=== PATIENT | female | born 1990 | race Two or more races ===

== ENCOUNTER 2025-04-29 12:22 | Emergency (ER) | payer MEDICAID, SELFPAY ==
[2025-04-29 12:23] VITALS: BMI 46.4
[2025-04-29 12:36] VITALS: BP 129/85; PULSE 69; RESP 18; TEMP 36.7; O2SAT 98; BMI 46.4
--- NOTE | 2025-04-29 12:48 | XR_ITS ---
Examination: CT abdomen and pelvis without contrast. Coronal 3-D reconstructions. Sagittal 2-D reconstructions. Date and time of exam:April 29, 2025 1541 hours INDICATIONS: Abdominal pain and vomiting beginning 2 days ago CTDI: vol (mGy): 12.3 DLP: (mGycm): 671 Technique: Axial images of the abdomen have been obtained, 3 mm slice thickness Intravenous contrast material has not been administered. Low dose protocols were performed. One or more of the following dose reduction techniques were used; automated exposure control, adjustment of the mA and/or KV according to patient size, use of iterative reconstruction technique. Findings: Right middle lobe No visualized liver and splenic lesions Absent gallbladder No pancreatic or adrenal mass No renal or ureteral calculi, no hydronephrosis No bowel obstruction 10 mm fat-containing umbilical hernia Normal appendix No diverticulitis Partially retroverted uterus No pelvic mass Contracted urinary bladder The osseous structures are intact IMPRESSION: No renal or ureteral calculi, no hydronephrosis No bowel obstruction Normal appendix No diverticulitis
--- NOTE | 2025-04-29 12:49 | EDNOTE_ITS ---
<Statement entered by Ashley Louis MD - 04/30/25 06:23> As co-signing physician, I was present and available for consult prn. I concur with the plan and care as documented by the midlevel provider. ED Abdominal Pain RME/HPI General Chief Complaint: Abdominal Pain Stated complaint: ABD PAIN SINCE YESTERDAY WITH VOMITING Time seen by provider: 04/29/25 13:03 Arrival date/time: 04/29/25 12:22 34-year-old female with no known medical history presents to the emergency room with a chief complaint of epigastric 10 out of 10 diffuse abdominal pain and vomiting x 2 days Source: patient Mode of arrival: ambulatory Limitations: no limitations Related Data Home Medications ?Medication ?Instructions ?Recorded ?Confirmed docusate sodium 100 mg capsule 100 mg PO QDAY 12/03/22 12/03/22 (Colace) [id number] 1 mg 1 tab PO BID 12/03/22 12/03/22 tablet Previous Rx's ?Medication ?Instructions ?Recorded nitrofurantoin 100 mg PO Q12H 5 days #10 ca ps 04/29/25 monohydrate/macrocrystals 100 mg capsule (Macrobid) Allergies Allergy/AdvReac Type Severity Reaction Status Date / Time codeine Allergy Severe Rash Verified 04/29/25 12:25 Review of Systems Review of Systems Systems Reviewed: All systems reviewed, normal except as documented Constitutional Constitutional: Reports system reviewed and no additional complaints, except as documented, Denies fatigue, Denies fever(s), Denies headache(s) and Denies weakness Eyes Eyes: Reports system reviewed and no additional complaints, except as documented, Denies blurry vision and Denies change in vision ENT Ears, Nose, Mouth, and Throat: Reports system reviewed and no additional complaints, except as documented, Denies otalgia, Denies headache(s), Denies nasal congestion, Denies throat swelling and Denies vertigo Cardiovascular Cardiovascular: Reports system reviewed and no additional complaints, except as documented, Denies chest pain, Denies dyspnea and Denies dyspnea on exertion Respiratory Respiratory: Reports system reviewed and no additional complaints, except as documented, Denies chest congestion, Denies cough, Denies dyspnea, Denies dyspnea on exertion and Denies wheezing Gastrointestinal Gastrointestinal: Reports system reviewed and no additional complaints, except as documented, Reports abdominal pain, Reports cramping, Reports nausea and Reports vomiting Genitourinary Genitourinary: Reports system reviewed and no additional complaints, except as documented Musculoskeletal Musculoskeletal: Reports system reviewed and no additional complaints, except as documented and Denies back pain Integumentary/Breasts Skin/Breast: Reports system reviewed and no additional complaints, except as documented and Denies wounds Neurologic Neurologic: Reports system reviewed and no additional complaints, except as documented, Denies confusion, Denies headache(s), Denies lack of coordination, Denies vertigo and Denies weakness Psychiatric Psychiatric: Reports system reviewed and no additional complaints, except as documented, Denies anxiety, Denies confusion, Denies depression, Denies paranoia, Denies suicidal ideation and Denies tactile hallucinations Endocrine Endocrine: Reports system reviewed and no additional complaints, except as documented and Denies fatigue Hematologic/Lymphatic Hematologic/Lymphatic: Reports system reviewed and no additional complaints, except as documented and Denies lymphadenopathy Allergic/Immunologic Allergic/Immunologic: Reports system reviewed and no additional complaints, except as documented, Denies throat swelling, Denies urticaria and Denies wheezing Past Medical History Past Medical History NEUROLOGIC: Negative Neurological Disorders or Seizures CARDIAC: Negative Cardiac Disorders or Congestive Heart Failure RESPIRATORY: Negative Chronic Obstructive Pulmonary Disease (COPD) or Asthma GASTROINTESTINAL: Positive Gastrointestinal Disorders (h. pylori) GENITOURINARY: Negative Genitourinary Disorders or Renal Disease MUSCULOSKELETAL: Negative Musculoskeletal Disorders ENDOCRINE: Negative Endocrine Disorders, Diabetes Mellitus Type 1 or Diabetes Mellitus Type 2 HEMATOLOGIC: Negative Blood Disorders or Sickle Cell Disease PSYCHO/SOCIAL: Positive Depression (stopped taking medication 2020) and Anxiety OTHER HISTORY: Positive Hospitalization (when infection of h. plyori); Negative Autoimmune Disease, Blood Transfusions, Anesthesia Reactions, MRSA, Clostridium Difficile or Cancer Family History FAMILY HISTORY: Positive Family Psychiatric Problems (bipolar patient's dad), Family Respiratory Disorders (pt's daughter asthma) and Family Cardiac Disorders (congestive heart failure pt Father); Negative Family Gastrointestinal Problems, Family Cancer, Family Surgery or Family Anesthesia Reaction Surgical History SURGICAL: Positive Abdominal Surgery Social History SMOKING STATUS: Current every day smoker SECOND HAND EXPOSURE: No ED Exam General Limitations: Present no limitations General appearance: Present alert and in no apparent distress Head Head exam: Present atraumatic Eye Eye exam: Present normal appearance, PERRL and EOMI ENT ENT exam: Present normal exam, normal oropharynx and mucous membranes moist Neck Neck exam: Present normal inspection, full ROM and trachea midline Chest Chest inspection: Present normal inspection and symmetric chest wall rise Respiratory Respiratory exam: Present normal lung sounds bilaterally Cardiovascular Cardiovascular exam: Present regular rate, normal rhythm and normal heart sounds Abdominal Exam Abdominal exam: Present soft and normal bowel sounds; Absent distention, tenderness, guarding, rebound or rigidity Abdominal tenderness: Present epigastrium and mild; Absent RLQ or LLQ Extremities Exam Extremities exam: Present normal inspection and full ROM Back Exam Back exam: Present normal inspection and full ROM Neurological Exam Neurological exam: Present alert, oriented X3 and CN II-XII intact Psychiatric Psychiatric exam: Present normal affect and normal mood Skin Skin exam: Present warm, dry, intact and normal color Course Quality Measures none Orders Category Date Time Status CT abdomen pelvis wo con Stat Exams 04/29/25 12:48 Completed CBC Stat Lab 04/29/25 13:05 Completed CMP [Comprehensive Metabolic Panel] Stat Lab 04/29/25 13:05 Completed HCG Qualitative,Urine Stat Lab 04/29/25 14:33 Completed Lipase Stat Lab 04/29/25 13:05 Completed UA [Urinalysis] Stat Lab 04/29/25 14:33 Completed Urine Culture Stat Lab 04/29/25 14:33 Received Ketorolac Inj [Toradol Inj] Med 04/29/25 16:40 Discontinued 30 mg IM X1 ONE Ondansetron Odt [Zofran Odt] Med 04/29/25 12:48 Discontinued 4 mg PO X1 ONE mg Hyd/Al Hyd/Pia Susp [Maalox Susp] Med 04/29/25 12:48 Discontinued 30 ml PO X1 ONE Vital Signs Vital signs: Vital Signs Temperature 98.0 F 04/29/25 12:36 Pulse Rate 69 04/29/25 12:36 Respiratory Rate 18 04/29/25 12:36 Blood Pressure 129/85 H 04/29/25 12:36 Pulse Oximetry (%) 98 04/29/25 12:36 Oxygen Delivery Method Room Air 04/29/25 12:36 O2 saturation 98% within normal limits Abdominal Pain MDM MDM Narrative MDM Narrative:: 34-year-old female with no known medical history presents to the emergency room with a chief complaint of epigastric 10 out of 10 diffuse abdominal pain and vomiting x 2 days Patient is hemodynamically stable and in no apparent distress. Patient is having epigastric pain and vomiting Physical examination shows tenderness to the epigastric area of her abdomen. There is no right lower quadrant right upper quadrant abdominal tenderness A CT of the abdomen and pelvis was completed and was negative for any acute findings CBC CMP were negative for any acute findings Urinalysis showed a urinary tract infection. Antibiotics were sent to the patient's pharmacy Patient was discharged and educated to follow-up with primary care provider in the next 24 to 48 hours and return to the emergency room for any evidence of worsening signs or symptoms Patient data External records reviewed:: [facility] previous records Clinical information provided by:: patient Social determinants that could affect healthcare access:: none Patient has the following chronic illnesses:: No chronic illness How is presenting disease/condition affected by chronic disease/condition?: no chronic disease Evaluation data The following diagnostics were reviewed and interpreted by me:: lab results and radiology exam(s) Lab and/or radiology exams considered but not ordered:: Labs radiology exams considered and ordered Interpretation Summary: CT abdomen and pelvis-Findings: Right middle lobe No visualized liver and splenic lesions Absent gallbladder No pancreatic or adrenal mass No renal or ureteral calculi, no hydronephrosis No bowel obstruction 10 mm fat-containing umbilical hernia Normal appendix No diverticulitis Partially retroverted uterus No pelvic mass Contracted urinary bladder The osseous structures are intact IMPRESSION: No renal or ureteral calculi, no hydronephrosis No bowel obstruction Normal appendix No diverticulitis Medications / Prescriptions Medications or Prescriptions considered but not ordered:: Medication given Medication administrations:: Medication Administration History Discontinued Medications Al Hydrox/Mg Hydrox/Simethicone (Mg Hyd/Al Hyd/Pia (Maalox Reg) Susp 30 Ml Udc) 30 ml PO X1 ONE Stop: 04/29/25 12:49 Last Admin: 04/29/25 14:39 Dose: 30 ml Documented By: Ketorolac Tromethamine (Ketorolac Inj 60 Mg/2 Ml Vial) 30 mg IM X1 ONE Stop: 04/29/25 16:41 Ondansetron HCl (Ondansetron Odt 4 Mg Tabrap) 4 mg PO X1 ONE; Protocol Stop: 04/29/25 12:49 Last Admin: 04/29/25 14:38 Dose: 4 mg Documented By: Medication given Consultations Consultation(s) initiated? (list below): No Diagnosis Differential diagnosis abdominal pain: abdominal pain, acute appendicitis, constipation, gastroenteritis and other Most likely diagnosis given after review of the tests above:: Urinary tract infection Admission Indicated Admission indicated?: not indicated Admission Request Was there a request for admission?: No Disposition Plan Disposition Plan: Discharge Discharge Attestation Discharge Attestation: The patient and all family members were given an opportunity to ask questions and understood the discharge instructions. Discharge instructions specifically effects, indications for sooner follow up or return to the emergency department, and the expected course of current diagnosis. Patient condition: Stable Discharge Plan Plan Patient Disposition: HOME (Self Care) Prescriptions/Referrals Prescriptions/Med Rec: New nitrofurantoin monohyd/m-cryst [Macrobid] 100 mg capsule 100 mg PO Q12H 5 Days Qty: 10 0RF Rx Instructions: must administer with a meal/food No Action [id number] 1 mg Tablet 1 tab PO BID docusate sodium [Colace] 100 mg Capsule 100 mg PO QDAY Referrals: Moni Asif PA-C [Primary Care Provider] - In 1 week Problem List Clinical Impression: Gastroenteritis, Urinary tract infection Patient/Caregiver Discharge Instructions Education Materials: ED Gastroenteritis, Noninfectious, ED CYSTITIS Female Adult Additional Instructions: Please follow-up with your primary care provider in the next 24 to 48 hours Your urinalysis showed a small urinary tract infection. Antibiotics are sent to your pharmacy please pick them up and take them as indicated Your CT of your abdomen and pelvis was negative for any acute findings Your blood work was negative for any acute infection or electrolyte imbalance For any evidence of worsening signs or symptoms return to the emergency room immediately Print Language: Serbian Stand Alone Forms: Minal Award Info., Work/School Release, Patient Portal Info Letter NILSA/DARRELL Supervising Physician PRITI Supervising Physician: Dr. LOUIS
[2025-04-29 13:17] LABS: Basophils % (Auto) 0 % (0-2.5); Eosinophils # (Auto) 0.1 Thou/mm3 (0.0-0.5); Eosinophils % (Auto) 1 % (0-10); Hematocrit 38.5 % (36.0-46.0); Hemoglobin 13.3 g/dL (12.0-16.0); Immature Granulocytes % (Auto) 0 % (0-0); Immature Granulocytes Auto 0.03 Thou/mm3 (0.00-0.00); Lymphocytes # (Auto) 1.2 Thou/mm3 (1.0-4.8); Lymphocytes % (Auto) 12 % (10-50); Mean Corpuscular HGB Conc 34.5 g/dl (31.0-37.0); Mean Corpuscular Hemoglobin 30.1 pg (25.0-35.0); Mean Corpuscular Volume 87 fL (80-100); Monocytes # (Auto) 0.5 Thou/mm3 (0.0-0.8); Monocytes % (Auto) 5 % (0-12); Neutrophils # (Auto) 8.1 Thou/mm3 (1.8-7.7); Neutrophils % (Auto) 82 % (37-80); Nucleated Red Blood Cell % 0 /100 WBC (0); Platelet Count 249 Thou/mm3 (140-440); RDW Standard Deviation 40.2 fL (36.4-46.3); Red Blood Count 4.42 Miln/mm3 (4.00-5.20); White Blood Count 9.9 Thou/mm3 (3.6-11.0)
[2025-04-29 13:36] LABS: Alanine Aminotransferase 78 U/L (10-49); Albumin, Serum 4.7 gm/dL (3.5-5.0); Albumin/Globulin Ratio 1.9 (1.2-2.2); Alkaline Phosphatase 84 U/L (46-116); Anion Gap 8 (7-16); Aspartate Amino Transferase 29 U/L (0-34); BUN/Creatinine Ratio 16 Ratio (12-20); Bilirubin,Total 0.4 mg/dL (0.3-1.2); Blood Urea Nitrogen 8 mg/dL (9-23); Calcium 9.6 mg/dL (8.3-10.6); Calcium (Corrected) 9.6 mg/dL (8.5-10.1); Carbon Dioxide 29.1 mMol/L (20.0-31.0); Chloride 100 mMol/L (98-107); Creatinine (Component) 0.5 mg/dL (0.6-1.3); Estimated Creatinine Clearance 172.5 mL/min (>60); Globulin 2.5 gm/dL (2.3-3.5); Glucose 103 mg/dL (74-106); Lipase 28 U/L (12-53); Osmolality,Calculated 272 (275-295); Sodium 137 mMol/L (136-145); Total Protein 7.2 gm/dL (5.7-8.2); eGFR > 60 See Note
[2025-04-29] MEDS: ONDANSETRON ODT 4 MG TABRAP PO (14:38)
[2025-04-29] MEDS: MG HYD/AL HYD/SIME (Maalox Reg) SUSP 30 ML UDC PO (14:39)
[2025-04-29 14:49] LABS: Collection Type, Urine Clean Catch
[2025-04-29 15:24] LABS: HCG Qualitative,Urine Negative
[2025-04-29 15:28] LABS: Bilirubin,Urine Negative (Negative); Blood,Urine Trace (Negative); Color,Urine Yellow (Lt Yel-Yel); Glucose, Urine Negative (Negative); Hyaline Casts,Urine < 1 /hpf (0-1); Ketones,Urine Negative (Negative); Leukocyte Esterase,Urine Positive (Negative); Nitrite,Urine Negative (Negative); PH,Urine 6.5 (5.0-7.0); Protein,Urine Trace (Neg - Trace); RBC,Urine 23 /hpf (0-3); Specific Gravity,Urine 1.028 (1.001-1.035); Squamous Epithelial Cell,Urine 17 /hpf (0-5); Urobilinogen,Urine Negative mg/dL (0.0-1.0); WBC,Urine 10 /hpf (0-5)
[2025-04-29 16:01] VITALS: BP 105/69; PULSE 72; RESP 17; TEMP 36.8; O2SAT 96
[2025-04-29 16:19] LABS: Clarity,Urine Hazy (Clear/Hazy)
[2025-04-29] MEDS: KETOROLAC INJ 60 MG/2 ML VIAL 30 MG IM (17:30)
== END 2025-04-29 18:24 | disposition home or self-care (01) ==
PROVIDERS: Nurse Practitioner Family; Emergency Provider Emergency Medicine; PCP Physician Assistant
DX: K52.9 Noninfective gastroenteritis and colitis, unspecified (principal); N39.0 Urinary tract infection, site not specified; K42.9 Umbilical hernia without obstruction or gangrene
CPT/HCPCS: 36415; 74176; 80053; 81001; 81025; 83690; 85025; 87086; 96372; 99284; J1885; Q0162; A9270